=== PATIENT | male | born 1965 | race Caucasian/White ===

== ENCOUNTER 2021-10-27 09:43 | Emergency (ER) | payer OTHER, SELFPAY ==
[2021-10-27] VITALS (8 sets, daily range): BP systolic 119–148; BP diastolic 68–81; PULSE 76; RESP 17; TEMP 35.9; O2SAT 95–97
--- NOTE | ~2021-10-27 | XR_ITS ---
EXAMINATION: XR chest 2V DATE: 10/27/2021 14:17 INDICATION: Cough, shortness of breath and fever TECHNIQUE: PA and lateral views of the chest were obtained. COMPARISON: Chest radiograph dated 04/15/2010 FINDINGS: Mild opacities in the right lower and left mid and lower lung zones. No pleural effusion or pneumotho rax. The cardiomediastinal silhouette is normal. Visualized bones and soft tissues are unremarkable. IMPRESSION: 1. Bilateral basilar predominant opacities which could represent pneumonia and/or atelectasis. Reviewed, dictated and finalized at location A. [employer] IMPRESSION: 1. Bilateral basilar predominant opacities which could represent pneumonia and/ or atelectasis.
[2021-10-27 10:30] LABS: Basophils Percent Auto 0.3 % (0.2-1.2); Eosinophils Percent Auto 0.2 % (0-4.4); Hematocrit 49.1 % (42.0-52.0); Hemoglobin 16.4 g/dL (14.0-18.0); Immature Granulocyte Absolute 0.03 K/mm3 (0.00-0.031); Immature Granulocyte Percent A 0.5 % (0-0.5); Lymphocytes Absolute Auto 0.95 K/mm3 (0.9-3.2); Lymphocytes Percent Auto 15.5 % (18.3-44.2); Mean Corpuscular HGB Conc 33.4 g/dl (32-36); Mean Corpuscular Hemoglobin 28.3 pg (26-34); Mean Corpuscular Volume 84.8 fl (80-100); Mean Platelet Volume 11.4 fl (7.4-10.4); Monocytes Absolute Auto 0.6 K/mm3 (0.1-0.6); Monocytes Percent Auto 9.5 % (2.6-8.5); Neutrophils Absolute Auto 4.5 K/mm3 (1.3-6.7); Platelet Count Result 147 k/mm3 (150-375); Red Blood Count 5.79 M/mm3 (4.6-6.20); Red Cell Distribution Width 13.3 % (11.5-14.5); White Blood Count 6.1 K/mm3 (4.5-10.0)
[2021-10-27 10:39] LABS: Alanine Aminotransferase 45 U/L (4-50); Albumin Level 4.3 g/dL (3.5-5.1); Alkaline Phosphatase 105 U/L (38-126); Anion Gap 11 mmol/L (8-16); Aspartate Amino Transferase 59 U/L (17-59); Bilirubin,Total 0.8 mg/dL (0.2-1.3); Blood Urea Nitrogen 14 mg/dL (9-20); Calcium 9.1 mg/dL (8.4-10.2); Carbon Dioxide 28 mmol/L (22-30); Chloride 95 mmol/L (98-107); Estimated CRCL calculation 87 ml/min; Estimated Glomerular Filt Rate > 60; Glucose 110 mg/dL (65-110); Lipase 171 U/L (23-300); Sodium 134 mmol/L (137-145)
--- NOTE | 2021-10-27 14:44 | ED.NAVMDI ---
HPI - Nausea/Vomiting/Diarrhea General Chief complaint: Nausea/Vomiting/Diarrhea Stated complaint: Diarrhea/Fever Time Seen by Provider: 10/27/21 13:26 Source: patient Mode of arrival: ambulatory Limitations: no limitations History of Present Illness HPI Narrative: 56-year-old male States no significant past medical history Also no influenza vaccine and no Covid vaccines Complains of being sick for about 10 days He has had a low-grade temperature between 101 101 He has a poor appetite and nausea Achy and fatigued No abdominal pain He has about 1 loose but otherwise unremarkable stool daily Occasional cough but this is not his main complaint, no shortness of breath Related Data Home Medications Medication Instructions Recorded Confirmed aspirin 325 mg tablet 325 mg PO DAILY 10/09/19 omeprazole magnesium 20 mg 20 mg PO DAILY 12/01/19 tablet,delayed release Allergies Allergy/AdvReac Type Severity Reaction Status Date / Time No Known Drug Allergies Allergy Unknown Verified 10/27/21 10:14 Review of Systems Review of Systems: All systems reviewed & are unremarkable except as noted in HPI and below Constitutional: Constitutional: Reports no additional constitutional complaints, Reports chills, Reports fatigue, Reports fever(s), Denies headache(s) and Reports weakness Eyes: Eyes: Reports no additional eye complaints and Denies change in vision ENT: Denies headache(s) and Denies sore throat Cardiovascular: Cardiovascular: Denies chest pain and Denies dyspnea Respiratory: Respiratory: Reports cough and Denies dyspnea Gastrointestinal: Gastrointestinal: Denies abdominal pain, Reports diarrhea, Reports nausea and Denies vomiting Genitourinary: Genitourinary: Denies dysuria and Denies urinary frequency Musculoskeletal: Musculoskeletal: Reports myalgias, Denies deformity, Denies arthralgias, Denies joint swelling and Denies numbness Integumentary/Breasts: Skin/Breast: Denies rash and Denies wounds Neurologic: Denies headache(s), Denies focal weakness and Denies numbness Psychiatric: Psychiatric: Reports no additional psychiatric complaints Endocrine: Endocrine: Reports no additional endocrine complaints Hematologic/Lymphatic: Hematologic/Lymphatic: Reports no additional hematologic/lymphatic complaints Allergic/Immunologic: Allergic/Immunologic: Reports no additional allergic/immunologic complaints PMFSH Past Medical History Medical History Arthritis Back pain GERD (gastroesophageal reflux disease) Heart murmur Intermittent right lower quadrant abdominal pain Surgical History Surgical History Hx of colonoscopy Family History Family History Father Hypertension Family history of coronary artery disease Patient's father is in good health Mother Family history of malignant neoplasm Patient's mother is , Onset Age: 59 Grandparent Family history of emphysema Social History Social History Smoking status: Former smoker Alcohol intake: never Substance use: never Exam Const: General: cooperative, no acute distress and alert Orientation/consciousness: patient oriented x3 (alert) HENMT: Head: normal to inspection, normocephalic and atraumatic Ears: external ears normal General nose exam: no epistaxis Eyes: Conjunctivae: conjunctivae normal EOM: EOMs intact bilaterally Neck: Neck: normal visual inspection, supple and no JVD Resp: Effort & Inspection: normal respiratory effort and not labored Auscultation: crackles, no rales, no rhonchi, no wheezes and other (BS =) Cardio: Rate: regular rate Rhythm: regular rhythm Heart sounds: no murmurs GI: GI Palp: Yes Soft to palpation and No Tenderness to palpation present (GI) Skin: Ge
[2021-10-27 15:51] LABS: Add Urine Microscopic? YES; Appearance Urine Clear (Clear); Bilirubin Urine Negative (Negative); Blood Urine 1+ (Negative); Color Urine Amber (Yellow); Glucose Urine UA Negative (Negative); Ketones Urine Trace mg/dL (Negative); Leukocyte Esterase Ur Negative LEU/UL (Negative); Mucus Urine Few /lpf; Nitrate Urine Negative (Negative); Protein Urine 1+ mg/dL (Negative); RBC Urine 0-2 /hpf (0-2); Urobilinogen Urine Negative mg/dL (<2.0); WBC Urine 0-3 /hpf
[2021-10-29 02:02] LABS: SARS-CoV-2 RNA PCR Positive
== END 2021-10-27 16:26 | disposition home or self-care (01) ==
PROVIDERS: Emergency Medicine; Emergency Provider Emergency Medicine; PCP Internal Medicine
DX: U07.1 COVID-19 (principal); M19.90 Unspecified osteoarthritis, unspecified site; K21.9 Gastro-esophageal reflux disease without esophagitis; Z79.82 Long term (current) use of aspirin
CPT/HCPCS: 36415; 71046; 80053; 81001; 83690; 85025; 87804; 99283; C9803; U0003; U0005

== ENCOUNTER 2022-05-08 09:40 | Emergency (ER) | payer OTHER, SELFPAY ==
--- NOTE | ~2022-05-08 | XR_ITS ---
EXAMINATION: XR abdomen/kub 1V DATE: 05/08/2022 11:45 INDICATION: Stone at the right ureterovesicular junction. TECHNIQUE: A supine view of the abdomen on 2 radiographs was obtained. COMPARISON: None. FINDINGS: A 4 mm stone at the right ureterovesicular junction to be seen projecting over the right base of the bladder. Phlebolith in the left hemipelvis. Excreted contrast is seen in the bilateral renal collecti ng systems, extending along the normal caliber left ureter and in the bladder. Mild right hydronephro sis. Normal bowel gas pattern. Left decreased femoral head/neck offset which can predispose towards c am-type femoral acetabular impingement. IMPRESSION: 1. 4 mm stone at the right ureterovesicular junction with mild right hydronephrosis. Reviewed, dictated and finalized at location B. IMPRESSION: 1. 4 mm stone at the right ureterovesicular junction with mild right hydronephr osis.
--- NOTE | ~2022-05-08 | CT_ITS ---
EXAMINATION: CT abdomen pelvis w con DATE: 05/08/2022 11:30 INDICATION: Right lower quadrant abdominal pain TECHNIQUE: Computed tomography (CT) of the abdomen and pelvis was performed with 100 mL Omnipaque-300 intravenous contrast. Automated exposure control and iterative reconstruction technique were employe d. The dose-length product was 876.05 mGy-cm. COMPARISON: 12/03/2019 FINDINGS: Lung bases are clear. Heart size is normal. Atherosclerotic coronary artery calcific location. No per icardial or pleural effusion. Small sliding-type hiatal hernia. Diffuse hepatic steatosis. Gallbladde r, spleen, pancreas and bilateral adrenal glands are normal. Obstructing 4 mm stone at the right uret erovesicular junction with mild right hydroureteronephrosis, delayed right nephrogram and right perin ephric stranding. There are a few additional smaller stones at both kidneys. No left-sided ureteral s tones or hydronephrosis. Bladder is normal. Prostatomegaly. Mild scattered diverticulosis with sigmoi d and descending colon predominance without adjacent inflammatory changes to suggest diverticulitis. Small bowel and appendix are normal. No free intraperitoneal gas or fluid. No pathologically enlarged abdominal or pelvic lymphadenopathy. Mild lower thoracic levocurvature. IMPRESSION: 1. Bilateral nephrolithiasis with obstructing 4 mm stone at the right ureterovesicular junction with mild right hydroureteronephrosis and delayed right nephrogram. 2. Small sliding-type hiatal hernia. 3. Mild diverticulosis. 4. Prostatomegaly. 5. Diffuse hepatic steatosis. Reviewed, dictated and finalized at location B. IMPRESSION: 1. Bilateral nephrolithiasis with obstructing 4 mm stone at the right ureterove sicular junction with mild right hydroureteronephrosis and delayed right nephro gram. 2. Small sliding-type hiatal hernia. 3. Mild diverticulosis. 4. Prostatomegaly. 5. Diffuse hepatic steatosis.
[2022-05-08 09:50] VITALS: BP 190/96; PULSE 67; RESP 22; TEMP 36.6; O2SAT 100
[2022-05-08] MEDS: MORPHINE SULFATE (*CRX) 4 MG/ML INJ IV PUSH (10:07)
[2022-05-08] MEDS: ONDANSETRON INJ 4 MG/2 ML VIAL IV PUSH (10:07)
[2022-05-08] MEDS: SODIUM CHLORIDE 0.9% IV 1,000 ML 999 ML IV CONT (10:08)
[2022-05-08 10:13] LABS: Basophils Absolute Auto 0.1 K/mm3 (0.0-0.1); Basophils Percent Auto 0.6 % (0.2-1.2); Eosinophils Absolute Auto 0.1 K/mm3 (0-0.3); Eosinophils Percent Auto 0.9 % (0-4.4); Hematocrit 49.1 % (42.0-52.0); Hemoglobin 16.8 g/dL (14.0-18.0); Immature Granulocyte Absolute 0.05 K/mm3 (0.00-0.031); Immature Granulocyte Percent A 0.4 % (0-0.5); Lymphocytes Absolute Auto 0.94 K/mm3 (0.9-3.2); Lymphocytes Percent Auto 8.1 % (18.3-44.2); Mean Corpuscular HGB Conc 34.2 g/dl (32-36); Mean Corpuscular Hemoglobin 28.4 pg (26-34); Mean Corpuscular Volume 82.9 fl (80-100); Mean Platelet Volume 12.1 fl (7.4-10.4); Monocytes Absolute Auto 0.5 K/mm3 (0.1-0.6); Monocytes Percent Auto 4.3 % (2.6-8.5); Neutrophils Percent Auto 85.7 % (45.5-73.1); Platelet Count Result 184 k/mm3 (150-375); Red Blood Count 5.92 M/mm3 (4.6-6.20); Red Cell Distribution Width 13.1 % (11.5-14.5); White Blood Count 11.6 K/mm3 (4.5-10.0)
--- NOTE | 2022-05-08 10:13 | PC.NURSE ---
Pt states he is unable to urinate at this time
--- NOTE | 2022-05-08 10:15 | PC.NURSE ---
pt unable to provide urine sample at this time.
--- NOTE | 2022-05-08 10:23 | PC.NURSE ---
Pt sats dropped to mid 80s after morphine administration. Pt put on 2L of oxygen via NC and O2 is now 100%
[2022-05-08 10:28] LABS: Alanine Aminotransferase 52 U/L (6-50); Albumin Level 4.6 g/dL (3.5-5.1); Alkaline Phosphatase 88 U/L (38-126); Anion Gap 7 mmol/L (8-16); Aspartate Amino Transferase 38 U/L (17-59); Bilirubin,Total 0.7 mg/dL (0.2-1.3); Blood Urea Nitrogen 18 mg/dL (9-20); Calcium 9.1 mg/dL (8.4-10.2); Carbon Dioxide 26 mmol/L (22-30); Chloride 106 mmol/L (98-107); Estimated Glomerular Filt Rate > 60; Glucose 125 mg/dL (65-110); Lipase 86 U/L (23-300); Potassium 4.1 mmol/L (3.4-5.0); Sodium 139 mmol/L (137-145)
--- NOTE | 2022-05-08 11:14 | PC.NURSE ---
Pt states he attempted to provide urine sample but was unable to go. Refusing straight cath
[2022-05-08 11:20] VITALS: BP 149/84; PULSE 82; RESP 17; O2SAT 98
[2022-05-08] MEDS: KETOROLAC 30 MG/ML VIAL (*BKC) IV PUSH (11:58)
--- NOTE | 2022-05-08 12:31 | PC.NURSE ---
pt stated pain is pretty well gone 30 mins after toradol administration
--- NOTE | 2022-05-08 12:44 | ED.ABDPAIN ---
HPI - Abdominal Pain General Chief Complaint: Abdominal Pain Stated Complaint: RLQ abdominal pain Time Seen by Provider: 05/08/22 09:52 History of Present Illness HPI narrative: Patient is a 56-year-old male who presents ER with right lower quadrant abdominal pain. Ongoing since yesterday but suddenly worsened today. Associated with sweats and nausea. No vomiting. No fevers or chills or sweats. No urinary frequency urgency or dysuria. Related Data Home Medications Medication Instructions Recorded Confirmed aspirin 325 mg tablet 325 mg PO DAILY 10/09/19 04/23/22 Allergies Allergy/AdvReac Type Severity Reaction Status Date / Time No Known Drug Allergies Allergy Unknown Verified 05/08/22 10:01 Review of Systems Review of Systems: All systems reviewed & are unremarkable except as noted in HPI and below Constitutional: Constitutional: Denies chills and Denies fever(s) ENT: Denies nasal congestion and Denies sore throat Cardiovascular: Cardiovascular: Denies chest pain, Denies rapid heart rate and Denies radiating jaw, neck or arm pain Respiratory: Respiratory: Denies cough and Denies dyspnea Gastrointestinal: Gastrointestinal: Reports abdominal pain, Reports nausea and Denies vomiting Genitourinary: Genitourinary: Denies hematuria, Denies oliguria, Denies dysuria and Denies testicular pain PMFSH Past Medical History Medical History Arthritis Back pain GERD (gastroesophageal reflux disease) Heart murmur Intermittent right lower quadrant abdominal pain Surgical History Surgical History Hx of colonoscopy Family History Family History Father Hypertension Family history of coronary artery disease Patient's father is in good health Mother Family history of malignant neoplasm Patient's mother is , Onset Age: 59 Grandparent Family history of emphysema Social History Social History Smoking status: Former smoker Alcohol intake: current Substance use: never Exam Narrative: GENERAL: Uncomfortable-appearing, well-nourished, and in mild distress. HEAD: Normocephalic, atraumatic. EYES: PERRL and EOMI. ENT: Mucous membranes moist. CHEST: Clear to auscultation. No respiratory distress. HEART: Regular rate and rhythm. Normal peripheral pulses. ABDOMEN: Soft, nontender, nondistended. EXTREMITIES: Normal range of motion. No edema. SKIN: Warm, dry, no rash. NEURO: Alert and oriented x3. PSYCH: Normal mood and affect. Course Course Emergency Course: Pain improved. Informed of results. Will refer to urology. Discharge home with supportive medications. Vital Signs Vital signs: Vital Signs Temperature 97.9 F 05/08/22 09:50 Pulse Rate 67 05/08/22 09:50 Respiratory Rate 22 H 05/08/22 09:50 Blood Pressure 190/96 H 05/08/22 09:50 Pulse Oximetry 100 05/08/22 09:50 Oxygen Delivery Room Air 05/08/22 09:50 Temperature 97.9 F 05/08/22 09:50 Pulse Rate 82 05/08/22 11:20 Respiratory Rate 17 05/08/22 11:20 Blood Pressure 149/84 H 05/08/22 11:20 Pulse Oximetry 98 05/08/22 11:20 Oxygen Delivery Room Air 05/08/22 09:50 MDM - Abdominal Pain Lab Data Result diagrams: 05/08/22 09:58 05/08/22 09:58 Labs: Lab Results 05/08/22 05/08/22 05/08/22 Range/Units 09:58 09:58 12:09 WBC 11.6 H (4.5-10.0) K/mm3 RBC 5.92 (4.6-6.20) M/mm3 Hgb 16.8 (14.0-18.0) g/dL Hct 49.1 (42.0-52.0) % MCV 82.9 (80-100) fl MCH 28.4 (26-34) pg MCHC 34.2 (32-36) g/dl RDW 13.1 (11.5-14.5) % Plt Count 184 (150-375) k/mm3 MPV 12.1 H (7.4-10.4) fl Immature Gran % (Auto) 0.4 (0-0.5) % Neut % (Auto) 85.7 H (45.5-73.1) % Lymph % (Auto)
[2022-05-08 12:52] LABS: Appearance Urine Clear (Clear); Bilirubin Urine Negative (Negative); Blood Urine Trace-lysed (Negative); Color Urine Yellow (Yellow); Glucose Urine UA Negative (Negative); Ketones Urine Trace mg/dL (Negative); Leukocyte Esterase Ur Negative LEU/UL (Negative); Nitrate Urine Negative (Negative); Protein Urine Negative (Negative); Specific Grav Ur 1.015 (1.001-1.035); Urobilinogen Urine 0.2 mg/dL (<2.0)
[2022-05-08 13:09] LABS: Mucus Urine Rare /lpf; Transitional Epi Cells Urine Rare /hpf (None Seen); WBC Urine 0-3 /hpf
[2022-05-08 13:12] LABS: Add Urine Microscopic? YES
[2022-05-08 14:08] VITALS: BP 184/95; PULSE 76; RESP 18; O2SAT 99
== END 2022-05-08 14:10 | disposition home or self-care (01) ==
PROVIDERS: Emergency Provider Emergency Medicine; PCP Family Medicine
DX: N13.2 Hydronephrosis with renal and ureteral calculous obstruction (principal); R10.31 Right lower quadrant pain; Z79.82 Long term (current) use of aspirin; M19.90 Unspecified osteoarthritis, unspecified site; K21.9 Gastro-esophageal reflux disease without esophagitis; Z87.891 Personal history of nicotine dependence; K44.9 Diaphragmatic hernia without obstruction or gangrene; K57.90 Diverticulosis of intestine, part unspecified, without perforation or abscess without bleeding; K76.0 Fatty (change of) liver, not elsewhere classified; N40.0 Benign prostatic hyperplasia without lower urinary tract symptoms
CPT/HCPCS: 36415; 74018; 74177; 80053; 81001; 83690; 85025; 96361; 96374; 96375; 99284; J1885; J2270; J2405; J7030; Q9967

== ENCOUNTER 2023-06-11 08:34 | Outpatient (CLI) | payer OTHER, SELFPAY ==
[2023-06-11 18:13] LABS: Alanine Aminotransferase 41 U/L (6-50); Albumin Level 4.4 g/dL (3.5-5.1); Alkaline Phosphatase 67 U/L (38-126); Anion Gap 11 mmol/L (8-16); Aspartate Amino Transferase 30 U/L (17-59); Bilirubin,Total 0.6 mg/dL (0.2-1.3); Blood Urea Nitrogen 17 mg/dL (9-20); Calcium 9.2 mg/dL (8.4-10.2); Carbon Dioxide 28 mmol/L (22-30); Chloride 100 mmol/L (98-107); Cholesterol 205 mg/dL (0-200); Estimated Glomerular Filt Rate > 60; Glucose 93 mg/dL (65-110); HDL Direct 41 mg/dL; Potassium 3.9 mmol/L (3.4-5.0); Sodium 139 mmol/L (137-145); Triglycerides 156 mg/dL (<150)
[2023-06-11 18:25] LABS: LDL Cholesterol Direct 126 mg/dL
[2023-06-11 18:45] LABS: Prostate Specific Antigen 1.6 ng/mL (< OR = 4.0)
[2023-06-11 19:56] LABS: Hemoglobin A1C 5.9 % (<5.7)
== END 2023-06-11 08:35 | disposition home or self-care (01) ==
LOC: ANHGOSHLAB 08:35
PROVIDERS: PCP Family Medicine; Visit Provider Family Medicine
DX: R73.03 Prediabetes (principal); Z13.220 Encounter for screening for lipoid disorders; Z12.5 Encounter for screening for malignant neoplasm of prostate; Z13.228 Encounter for screening for other metabolic disorders
CPT/HCPCS: 36415; 80053; 80061; 83036; 84153; G0103